=== PATIENT | male | born 1965 | race African-American/Black ===

== ENCOUNTER 2016-03-31 14:42 | Inpatient (IN) | payer MEDICARE, OTHER ==
[~2016-03-31] VITALS: Ht 188 cm; Wt 90.7 kg
[~2016-03-31 14:42] MED LIST: GLUCOPHAGE500 MG ORAL; IBUPROFEN600 MG ORAL; JANUVIA100 MG ORAL; KEPPRA500 M4 ORAL; NOVOLIN R100 UNIT/1 SUBQ; UNOBMED
[2016-03-31 15:18] VITALS: BP 124/90
[2016-03-31 15:30] LABS: BASOPHILS % (AUTO) 0.7 % (0.0-2.0); EOSINOPHILS % (AUTO) 0.4 % (0.0-3.0); LYMPHOCYTES % (AUTO) 11.3 % (20.0-45.0); MEAN CORPUSCULAR HGB CONC 31.3 G/DL (32.0-36.0); MEAN CORPUSCULAR VOLUME 89 FL (80-99); MEAN PLATELET VOLUME 4.9 FL (6.5-10.1); MONOCYTES % (AUTO) 7.9 % (1.0-10.0); NEUTROPHILS % (AUTO) 79.8 % (45.0-75.0); PLATELET COUNT 274 K/UL (150-450); RED BLOOD COUNT 4.33 M/UL (4.70-6.10); RED CELL DISTRIBUTION WIDTH 13.2 % (11.6-14.8); WHITE BLOOD COUNT 7.3 K/UL (4.8-10.8)
--- NOTE | 2016-03-31 15:30 | Emergency Room Report ---
History of Present Illness General Chief Complaint: Altered Level of Consciousness Source: Patient, EMS Present Illness HPI Is patient is brought in by EMS. The patient himself does not recall why he is brought to the emergency department. EMS reports that they were called by a bystander because of strange behavior. When they arrived he was acting confused. The blood sugar that was obtained in the field was "low." EMS gave glucagon and orange to this and he recovered his mental status. He is now alert and oriented. Patient states that he has a history of diabetes and seizure disorder. He states that typically his blood sugar runs in the 200s. He states he has been running a little low lately. He denies recent illness. He denies fever or chills. He denies cough or congestion. He has no other complaints. Allergies: Coded Allergies: No Known Allergies (Unverified , 05/05/13) Patient History Past Medical History: see triage record, seizures Social History: Denies: alcohol use, drug use, smoking Reviewed Nursing Documentation: PMH: Agreed, PSxH: Agreed Nursing Documentation-PMH Past Medical History: No History, Except For Hx Cardiac Problems: No Hx Diabetes: Yes Hx Cancer: No Hx Gastrointestinal Problems: No Hx Neurological Problems: Yes Hx Seizures: Yes Review of Systems All Other Systems: negative except mentioned in HPI Physical Exam Vital Signs Date Time Temp Pulse Resp B/P Pulse Ox O2 Delivery O2 Flow Rate FiO2 03/31/16 14:37 97.9 84 18 134/66 99 Room Air Sp02 EP Interpretation: reviewed, normal General Appearance: no apparent distress, alert, GCS 15, non-toxic Head: normocephalic, atraumatic Eyes: bilateral eye PERRL, bilateral eye normal inspection ENT: hearing grossly normal, normal pharynx, no angioedema, normal voice Neck: full range of motion, supple/symm/no masses Respiratory: chest non-tender, lungs clear, normal breath sounds, speaking full sentences Cardiovascular #1: regular rate, rhythm, no edema Gastrointestinal: normal bowel sounds, non tender, soft, non-distended, no guarding, no rebound Rectal: deferred Musculoskeletal: back normal, gait/station normal, normal range of motion, non- tender Neurologic: alert, oriented x3, responsive, motor strength/tone normal, sensory intact, speech normal Psychiatric: judgement/insight normal, memory normal, mood/affect normal, no suicidal/homicidal ideation Skin: normal color, no rash, warm/dry, well hydrated Medical Decision Making Diagnostic Impression: Primary Impression: Hypoglycemia ER Course This patient has a history of diabetes and was found to be hypoglycemic by EMS and altered. By the time I evaluated the patient he was back to baseline. The patient is on insulin and metformin. He has presented for hyperglycemia multiple times previously. He was given a meal here in the emergency department his blood sugar was monitored. He will be admitted for further blood sugar monitoring, further evaluation and treatment. Labs Test 03/31/16 15:15 03/31/16 15:40 White Blood Count 7.3 K/UL (4.8-10.8) Red Blood Count 4.33 M/UL (4.70-6.10) Hemoglobin 12.1 G/DL (14.2-18.0) Hematocrit 38.7 % (42.0-52.0) Mean Corpuscular Volume 89 FL (80-99) Mean Corpuscular Hemoglobin 28.0 PG (27.0-31.0) Mean Corpuscular Hemoglobin Concent 31.3 G/DL (32.0-36.0) Red Cell Distribution Width 13.2 % (11.6-14.8) Platelet Count 274 K/UL (150-450) Mean Platelet Volume 4.9 FL (6.5-10.1) Neutrophils (%) (Auto) 79.8 % (45.0-75.0) Lymphocytes (%) (Auto) 11.3 % (20.0-45.0) Monocytes (%) (Auto) 7.9 % (1.0-10.0) Eosinophils (%) (Auto) 0.4 % (0.0-3.0) Basophils (%) (Auto) 0.7 % (0.0-2.0) Sodium Level 141 mEQ/L (135-145) Potassium Level 5.1 mEQ/L (3.4-4.9) Chloride Level 97 mEQ/L (98-107) Carbon Dioxide Level 27 mEQ/L (20-30) Anion Gap 17 (5-15) Blood Urea Nitrogen 14 mg/dL (7-23) Creatinine 1.0 mg/dL (0.7-1.2) Estimat Glomerular Filtration Rate > 60 mL/min (>60) Glucose Level 107 mg/dL (74-106) Calcium Level 10.0 mg/dL (8.6-10.2) Magnesium Level 1.9 mg/dL (1.7-2.5) Total Bilirubin 0.2 mg/dL (0.0-1.2) Aspartate Amino Transf (AST/SGOT) 151 U/L (5-40) Alanine Aminotransferase (ALT/SGPT) 74 U/L (3-41) Alkaline Phosphatase 78 U/L (40-129) Total Protein 6.7 g/dL (6.6-8.7) Albumin 4.5 g/dL (3.5-5.2) Globulin 2.2 g/dL Albumin/Globulin Ratio 2.0 (1.0-2.7) Serum Alcohol < 10 mg/dL Urine Color Yellow Urine Appearance Clear Urine pH 6.5 (4.5-8.0) Urine Specific [place] 1.015 (1.005-1.035) Urine Protein 2+ (NEGATIVE) Urine Glucose (UA) Negative (NEGATIVE) Urine Ketones Negative (NEGATIVE) Urine Occult Blood Negative (NEGATIVE) Urine Nitrite Negative (NEGATIVE) Urine Bilirubin Negative (NEGATIVE) Urine Urobilinogen Normal MG/DL (0.0-1.0) Urine Leukocyte Esterase Negative (NEGATIVE) Urine RBC 0-2 /HPF (0 - 0) Urine WBC 0-2 /HPF (0 - 0) Urine Squamous Epithelial Cells Occasional /LPF Urine Bacteria Few /HPF (NONE) Urine Opiates Screen Negative (NEGATIVE) Urine Barbiturates Screen Negative (NEGATIVE) Phencyclidine (PCP) Screen Negative (NEGATIVE) Urine Amphetamines Screen Negative (NEGATIVE) Urine Benzodiazepines Screen Negative (NEGATIVE) Urine Cocaine Screen Negative (NEGATIVE) Urine Marijuana (THC) Screen Negative (NEGATIVE) EKG Diagnostic Results Rate: normal Rhythm: NSR ST Segments: no acute changes Rhythm Strip Diag. Results EP Interpretation: yes Rate: 70's Rhythm: NSR, no PVC's, no ectopy Last Vital Signs Date Time Temp Pulse Resp B/P Pulse Ox O2 Delivery O2 Flow Rate FiO2 03/31/16 15:18 97.9 79 18 124/90 99 Room Air Disposition: ADMITTED INPATIENT Condition: Serious Referrals: KARLO GUZMAN,REFERRING (PCP) MARYANNE CHAVEZ D.O. Mar 31, 2016 15:30
[2016-03-31 15:51] LABS: ALANINE AMINOTRANSFERASE 74 U/L (3-41); ANION GAP 17 (5-15); ASPARTATE AMINO TRANSFERASE 151 U/L (5-40); CARBON DIOXIDE 27 mEQ/L (20-30); CHLORIDE 97 mEQ/L (98-107); GLOMERULAR FILTRATION RATE > 60 mL/min (>60); HEMOLYSIS 5; MAGNESIUM 1.9 mg/dL (1.7-2.5); POTASSIUM 5.1 mEQ/L (3.4-4.9); SODIUM 141 mEQ/L (135-145); TOTAL PROTEIN 6.7 g/dL (6.6-8.7)
[2016-03-31 16:00] LABS: APPEARANCE,URINE CLEAR; KETONES,URINE NEGATIVE (NEGATIVE); LEUKOCYTE ESTERASE ,URINE NEGATIVE (NEGATIVE); NITRITE,URINE NEGATIVE (NEGATIVE); PH,URINE 6.5 (4.5-8.0); PROTEIN,URINE 2+ (NEGATIVE); UROBILINOGEN,URINE NORMAL MG/DL (0.0-1.0)
[2016-03-31 16:15] LABS: BACTERIA,URINE FEW /HPF; RBC,URINE 0-2 /HPF (0 - 0); SQUAMOUS EPITHELIAL CELL,UR OCCASIONAL /LPF (NONE/OCC); WBC,URINE 0-2 /HPF (0 - 0)
[2016-03-31] MEDS ORDERED: Ketorolac 30mg Inj IV PRN (16:30)
[2016-03-31] MEDS ORDERED: Mylanta II UD 30ml ORAL PRN (16:30)
[2016-03-31] MEDS ORDERED: Nitroglycerin Subl 0.4mg tab (Bottle Of 25) SL PRN (16:30)
[2016-03-31] MEDS ORDERED: Morphine Sulfate 2mg/ml Inj IVP PRN (16:30)
[2016-03-31] MEDS ORDERED: DuoNeb 0.5-3(2.5)mg/3ml neb HHN PRN (16:30)
[2016-03-31] MEDS ORDERED: Miralax 17gm pkt ORAL PRN (16:30)
[2016-03-31 16:38] VITALS: BP 117/67
[2016-03-31 17:44] VITALS: BP 117/67
[2016-03-31] MEDS ORDERED: D5 1/2NS 1,000 ML IV SCH (18:00)
[2016-03-31] MEDS ORDERED: D5 1/2NS 1000ml IV ONE (20:39)
[2016-03-31] MEDS ORDERED: NovoLOG Insulin Flexpen SUBQ SCH (21:00)
[2016-03-31] MEDS ORDERED: Heparin 5000 units/ml inj SUBQ SCH (21:00)
--- NOTE | 2016-04-01 11:15 | Discharge Summary ---
Discharge Summary Hospital Course Date of Admission Mar 31, 2016 at 16:00 Date of Discharge Mar 31, 2016 at 20:40 Admitting Diagnosis hypoglycemia HPI Kan Colin is a 51 year old male who was admitted on Mar 31, 2016 at 16: 00 for Hypoglycemia Hospital Course dc summary dictated # [id number] Discharge Condition Upon Discharge: stable, unchanged Discharge Disposition Patient signed AMA 03/31/16 Discharge Diagnoses: Discharge Instructions Discharge Instructions Special Instructions I have been assigned to complete a D/C Summary on this account. I was not involved in the patient management Mae Brannon NP ([facility]) Apr 01, 2016 11:15
--- NOTE | 2016-04-01 14:34 | Cardiology Report ---
APPROVED REPORT EKG Measurement Heart [id number] Normal sinus rhythm Normal ECG
--- NOTE | 2016-04-02 06:29 | Discharge Summary 2 SIG ---
DATE OF ADMISSION: 03/31/2016 DATE OF SIGNING AGAINST MEDICAL ADVICE: 03/31/2016 REASON FOR HOSPITALIZATION: A 51-year-old male was brought by paramedics. The patient himself did not recall why he was brought to the emergency department. However, pit worker power shovel reported that they were called by a bystander because of the strange behavior of the patient. When the paramedics arrived, the patient was acting confused. Blood sugar obtained in the field was stated too low. Paramedics provided glucagon and orange juice to the patient , afterwards patient recovered his mental status. As he became alert and oriented, the patient reported that he had a history of diabetes and seizure disorder. He stated that typically his blood sugar runs in the 200. He also stated that he has been running a little low lately. He denied any recent illness. He denied fever or chills. He denied cough, congestion, or wheezing. No other complaint. In the emergency department, the lab work revealed blood sugar of 107. Overall, the patient's mental status was back to normal. Laboratory workup was stable. EKG showed normal sinus rhythm, no acute changes, and no acute elevated LFT. The patient was admitted to Med/Surg floor for further blood sugar management. ADMITTING DIAGNOSES: 1. Episode of hypoglycemia. 2. Diabetes mellitus. 3. Acute metabolic encephalopathy secondary to hypoglycemia, resolved. 4. Elevated LFT. 5. Seizure disorder HOSPITAL STAY: The patient was transferred to the floor and became immediately agitated. The patient wanted immediately to get food and pain management. Nurse placed a call to admitting physician. However, the patient did not want to wait even 5 minutes. He decided to leave against medical advice. Risks and consequences of signing against medical advice were explained to the patient but he insisted and left against medical advise. DISCHARGE DIAGNOSES: 1. Episodes of hypoglycemia, resolved. 2. Acute metabolic encephalopathy secondary to hypoglycemia, resolved. 3. Diabetes mellitus. 4. Elevated LFT. 5. Seizure disorder. Romy Ayala M.D. I have been assigned to dictate discharge summary on this account and I was not involved in the patient's management. Mae Brannon N.P. ([facility]) DR: LOUISE JOB#: [id number] CC: VISH
== END 2016-03-31 20:40 | disposition left against medical advice (07) | DRG 637 ==
LOC: ENRESERVDT → ENRESERVTM → EDBD 14:42 → EMR 15:06 → 4E 16:00 → EDBEDREQ 16:07
DX: E11.649 Type 2 diabetes mellitus with hypoglycemia without coma (principal); G93.41 Metabolic encephalopathy; R56.9 Unspecified convulsions
CPT/HCPCS: 36415; 80053; 80300; 80329; 81003; 82962; 83735; 85025; 87081; 93005; J1815